=== PATIENT | female | born 1965 | race Caucasian/White ===

== ENCOUNTER → 2019-02-12 | Outpatient (CLI) | payer OTHER | END | disposition home or self-care (01) | LOC: CFH 15:37 | PROVIDERS: ATTEND Obstetrics & Gynecology | DX: D25.1 Intramural leiomyoma of uterus (principal) | CPT/HCPCS: 76856 ==

== ENCOUNTER 2019-06-28 11:05 | Inpatient (IN) | payer OTHER ==
[~2019-06-28] VITALS: Ht 177.8 cm; Wt 87.1 kg
[~2019-06-28 11:05] MED LIST: ASPI81TA45 PO; IRON PO; MAGNESIUM PO
[2019-06-28] MEDS ORDERED: PHENYLEPHRINE 10 MG/ML ONE (11:14)
[2019-06-28] MEDS ORDERED: SUGAMMADEX 200 MG/2 ML IVPush ONE (11:14)
[2019-06-28] MEDS ORDERED: ONDANSETRON 2MG/ML, 2ML ONE (11:14)
[2019-06-28] MEDS ORDERED: PROPOFOL 10 MG/ML, 20ML ONE (11:14)
[2019-06-28] MEDS ORDERED: ROCURONIUM 10MG/ML,5ML ONE (11:14)
[2019-06-28] MEDS ORDERED: GLYCOPYRROLATE 0.2MG/1ML, 5ML ONE (11:14)
[2019-06-28] MEDS ORDERED: CEFOTETAN 2 GM ONE (11:14)
[2019-06-28] MEDS ORDERED: DEXAMETHASONE 4 MG/ML, 1ML ONE (11:14)
[2019-06-28 11:50] VITALS: BP 102/66
[2019-06-28 12:00] LABS: HCG UR SG 1.018 (1.003-1.030)
[2019-06-28] MEDS ORDERED: ACETAMINOPHEN 500 MG TABLET PO ONE (12:00)
[2019-06-28] MEDS ORDERED: GABAPENTIN 300 MG CAPSULE PO ONE (12:00)
[2019-06-28] MEDS ORDERED: PHENAZOPYRIDINE 200 MG TABLET PO ONE (12:00)
[2019-06-28] MEDS ORDERED: LACTATED RINGERS 1,000 ML IV SCH (12:02)
[2019-06-28] MEDS ORDERED: EPINEPHRINE 1 MG/ML, 1ML ONE (12:11)
[2019-06-28] MEDS ORDERED: SODIUM CHLORIDE 0.9% 0 ML ONE (12:11)
[2019-06-28] MEDS ORDERED: BUPIVACAINE/PF 0.25% ONE (12:11)
[2019-06-28] MEDS ORDERED: FLUORESCEIN SODIUM 500 MG/5 ML ONE (12:11)
[2019-06-28] MEDS ORDERED: VASOPRESSIN 20 UNIT/ML, 1ML ONE (12:12)
[2019-06-28] MEDS ORDERED: SCOPOLAMINE PATCH, 1.5MG PATCH.TD72 TD ONE (12:30)
[2019-06-28] MEDS ORDERED: MEPERIDINE/PF 25MG/0.5ML IVPush PRN (14:30)
[2019-06-28] MEDS ORDERED: hydrALAzine 20 MG/ML, 1ML IV PRN (14:30)
[2019-06-28] MEDS ORDERED: HALOPERIDOL 5 MG/ML IV PRN (14:30)
[2019-06-28] MEDS ORDERED: PROMETHAZINE 25 MG/ML, 1ML IV PRN (14:30)
[2019-06-28] MEDS ORDERED: OXYcodone 5 MG/5 ML ORAL.SOL UDC PO PRN (14:30)
[2019-06-28] MEDS ORDERED: FENTANYL PF 100 MCG/2ML ONE ×2 (16:08→16:46)
[2019-06-28] MEDS ORDERED: OXYcodone 5 MG/5 ML ORAL.SOL UDC ONE (16:08)
[2019-06-28] MEDS ORDERED: HYDROmorphone 2 MG/ML, 1ML ONE (16:08)
[2019-06-28] MEDS: FENTANYL PF 100 MCG/2ML IV PRN ×3 (16:11→16:49)
[2019-06-28] MEDS: HYDROmorphone 2 MG/ML, 1ML IVPush PRN ×4 (16:14→16:44)
[2019-06-28] MEDS ORDERED: morphine SULFATE 10 MG/ML, 1ML IV PRN (18:00)
[2019-06-28] MEDS ORDERED: ACETAMINOPHEN 325 MG TABLET PO PRN (18:00)
[2019-06-28] MEDS ORDERED: ACETAMINOPHEN 650 MG SUPP PR PRN (18:00)
[2019-06-28 19:36] VITALS: BP 90/49
[2019-06-28] MEDS ORDERED: ZOLPIDEM 5MG TABLET PO PRN (21:00)
[2019-06-28] MEDS: IBUPROFEN 600 MG TABLET PO SCH (21:06)
[2019-06-28] MEDS: OXYcodone/APAP 5/325MG TABLET PO PRN (21:06)
[2019-06-28] MEDS: SIMETHICONE 80 MG CHEW TAB PO SCH (21:06)
[2019-06-28] MEDS: LACTATED RINGERS 1,000 ML IV SCH (22:00)
[2019-06-29 00:36] VITALS: BP 102/55
[2019-06-29 04:19] VITALS: BP 109/50
[2019-06-29] MEDS: OXYcodone/APAP 5/325MG TABLET PO PRN ×4 (05:23→20:52)
[2019-06-29] MEDS: IBUPROFEN 600 MG TABLET PO SCH ×4 (05:23→20:53)
[2019-06-29] MEDS: LACTATED RINGERS 1,000 ML IV SCH ×3 (06:04→22:00)
[2019-06-29 07:20] VITALS: BP 95/57
[2019-06-29] MEDS: SIMETHICONE 80 MG CHEW TAB PO SCH ×3 (08:20→20:53)
[2019-06-29] MEDS ORDERED: OXYC-302 PO (10:45)
[2019-06-29] MEDS ORDERED: IBUP-1222 PO (10:50)
[2019-06-29 15:14] VITALS: BP 102/64
[2019-06-29 19:14] VITALS: BP 107/64
[2019-06-30 00:13] VITALS: BP 107/66
[2019-06-30] MEDS: OXYcodone/APAP 5/325MG TABLET PO PRN ×2 (02:11→06:28)
[2019-06-30] MEDS: LACTATED RINGERS 1,000 ML IV SCH (06:00)
[2019-06-30] MEDS: IBUPROFEN 600 MG TABLET PO SCH (06:28)
[2019-06-30 07:30] VITALS: BP 105/62
[2019-06-30] MEDS: SIMETHICONE 80 MG CHEW TAB PO SCH (08:13)
== END 2019-06-30 11:30 | disposition home or self-care (01) | DRG 743 ==
LOC: OUT 11:05 → 4NOR 17:17 → OUT 22:17 → 4NOR 22:17
PROVIDERS: ADMIT Obstetrics & Gynecology; ATTEND Obstetrics & Gynecology
PROC: 0UT90ZZ Resection of Uterus, Open Approach (ICD-10-PCS; 2019-06-28)
PROC: 0UJD4ZZ Inspection of Uterus and Cervix, Percutaneous Endoscopic Approach (ICD-10-PCS; 2019-06-28)
PROC: 0UT70ZZ Resection of Bilateral Fallopian Tubes, Open Approach (ICD-10-PCS; principal; 2019-06-28 13:00)
DX: D25.1 Intramural leiomyoma of uterus (principal); G89.29 Other chronic pain; N73.6 Female pelvic peritoneal adhesions (postinfective); N92.0 Excessive and frequent menstruation with regular cycle; Z53.31 Laparoscopic surgical procedure converted to open procedure; Z88.1 Allergy status to other antibiotic agents
CPT/HCPCS: 36415; J3490; 81025; 85014; 85018; 88307; 88311; G0378; J0171; J1100; J1170; J2405; J2704; J3010; J2370; J7120

== ENCOUNTER 2020-01-29 09:28 | Emergency (ER) | payer OTHER ==
[~2020-01-29] VITALS: Ht 177.8 cm; Wt 32.0 kg
[~2020-01-29 09:28] MED LIST changes: +IBUP-1222 PO; +OXYC-302 PO
--- NOTE | 2020-01-29 10:00 | NUR ---
REPORT GIVEN TO PRIMARY RN JEROMY.
--- NOTE | 2020-01-29 10:07 | NUR ---
TASK RN NOTE: PT SENT FROM URGENT CARE. PT PRESENTS TO ED WITH C/O LEFT LATERAL RIB PAIN, DESCRIBED SHARP, STABBING AND BRIEF. PT STATES THAT FIRST EPISODE OCCURRED YESTERDAY AT 4PM, SECOND EPISODE AT 3AM (THIS AM). PT STATES SHE HAD BRIEF SOB AT 3AM, HOWEVER PT DENIES SOB OR PAIN AT THIS TIME. PT STATES SHE HAS HX OF AFIB, LAST KNOWN EPISODE WAS 06/2019. PT'S TRIAGE NOTE STATES COMPLAINT OF LEFT ARM PAIN, PT DENIES LEFT ARM PAIN. PT STATES SHE HAS NEVER TAKEN BLOOD THINNERS, "I PREFER TO EXERCISE AND TRY TO STAY HEALTHY THAT WAY." PT DENIES PAIN TO ANY EXTREMITY, DENIES ANY EDEMA. PT ATTACHED TO ALL MONITORS. PT A&OX4, RESPS EVEN AND UNLABORED, SPEAKING IN FULL SENTENCES. CALL LIGHT IN REACH, MED STUDENT AT BEDSIDE FOR INITIAL ASSESSMENT.
[2020-01-29 11:00] LABS: BASOPHILS # (AUTO) 0.05 x10^3/uL (0-0.1); BASOPHILS % (AUTO) 1 % (0-1); EOSINOPHILS # (AUTO) 0.05 x10^3/uL (0-0.4); EOSINOPHILS % (AUTO) 1 % (1-7); LYMPHOCYTES # (AUTO) 1.49 x10^3/uL (1-3.4); LYMPHOCYTES % (AUTO) 21 % (22-44); MD NO; MEAN CORPUSCULAR HEMOGLOBIN 30.6 pg (27.0-34.8); MEAN CORPUSCULAR HGB CONC 33.6 g/dL (32.4-35.8); MEAN PLATELET VOLUME 8.8 fL (7.4-10.4); MONOCYTES # (AUTO) 0.31 x10^3/uL (0.2-0.8); MONOCYTES % (AUTO) 4 % (2-9); NEUTROPHILS # (AUTO) 5.38 x10^3/uL (1.8-6.8); NEUTROPHILS % (AUTO) 74 % (42-75); PLATELET COUNT 217 x10^3/uL (130-400); RED BLOOD COUNT 4.83 x10^6/uL (3.82-5.3); RED CELL DISTRIBUTION WIDTH 13.2 % (9.6-15.2)
[2020-01-29 11:11] LABS: ALBUMIN 4.1 g/dL (3.4-5.0); ANION GAP 7 mmol/L (5-15); CALCIUM 9.4 mg/dL (8.5-10.1); CHLORIDE 108 mmol/L (98-107); CREATININE 0.96 mg/dL (0.55-1.02)
[2020-01-29 11:15] LABS: TROPONIN I < 0.015 ng/mL (0.000-0.045)
--- NOTE | 2020-01-29 12:15 | NUR ---
PIV PLACED -CT CALLED TO DETERMINE ESTIMATED TIME OF SCAN- ESTIMATED 20 MINUTES VSS ON FUEL HANDLER PATIENT [id number] CP/PALPITATIONS AT THIS TIME PATIENT UPDATED ON ESTIMATED POC
--- NOTE | 2020-01-29 12:59 | NUR ---
BACK FROM CT
[2020-01-29] MEDS ORDERED: OMNIPAQUE 350 MG/ML, 75ML BOTTLE ONE (13:01)
--- NOTE | 2020-01-29 13:51 | NUR ---
BREAK RN: SANDRA STUDENT FLORIDALMA AT BEDSIDE FOR RECHECK/EXPLANATION OF RESULTS. ALL QUESTIONS ANSWERED. PT VERBALIZES UNDERSTANDING OF RESULTS. PT AO X 4. SKIN PWD. RESP EVEN AND UNLABORED. CALL LIGHT WITHIN REACH.
[2020-01-29 14:08] VITALS: BP 122/71
== END 2020-01-29 14:10 | disposition home or self-care (01) ==
LOC: ED 11:23
DX: R07.89 Other chest pain (principal); I48.91 Unspecified atrial fibrillation; G43.909 Migraine, unspecified, not intractable, without status migrainosus
CPT/HCPCS: 36415; 71046; 71260; 80048; 82040; 84484; 85025; 85379; 93005; 99285; Q9967

== ENCOUNTER 2021-06-15 17:30 | Emergency (ER) | payer OTHER ==
[~2021-06-15] VITALS: Ht 177.8 cm; Wt 65.1 kg
[~2021-06-15 17:30] MED LIST changes: -OXYC-302 PO; +OXYC1TAB14 PO
[2021-06-15 18:48] LABS: BASOPHILS % (AUTO) 1 % (0-1); EOSINOPHILS % (AUTO) 0 % (1-7); LYMPHOCYTES % (AUTO) 28 % (22-44); MEAN CORPUSCULAR HEMOGLOBIN 30.8 pg (27.0-34.8); MEAN CORPUSCULAR HGB CONC 34.4 g/dL (32.4-35.8); MEAN PLATELET VOLUME 9.3 fL (7.4-10.4); MONOCYTES % (AUTO) 7 % (2-9); NEUTROPHILS % (AUTO) 64 % (42-75); PLATELET COUNT 176 x10^3/uL (130-400); RED BLOOD COUNT 4.92 x10^6/uL (3.82-5.3); RED CELL DISTRIBUTION WIDTH 13.4 % (9.6-15.2)
--- NOTE | 2021-06-15 18:48 | NUR ---
report recieved form krystina tolliver
[2021-06-15 18:49] LABS: ALANINE AMINOTRANSFERASE 25 U/L (12-78); ANION GAP 5 mmol/L (5-15); CALCIUM 9.4 mg/dL (8.5-10.1); CHLORIDE 107 mmol/L (98-107); CREATININE 0.84 mg/dL (0.55-1.02)
[2021-06-15 18:52] LABS: ALKALINE PHOSPHATASE 51 U/L (45-117); BILIRUBIN,TOTAL 0.9 mg/dL (0.2-1.0); TOTAL PROTEIN 6.9 g/dL (6.4-8.2)
[2021-06-15] MEDS ORDERED: SODIUM CHLORIDE FLUSH 10ML SYR IVF ONE (19:00)
--- NOTE | 2021-06-15 19:20 | NUR ---
PT TO CT
[2021-06-15] MEDS ORDERED: OMNIPAQUE 350 MG/ML, 100ML BOTTLE ONE (19:45)
--- NOTE | 2021-06-15 19:46 | NUR ---
pt back from ct, ambulated to restroom at this time.
[2021-06-15 19:52] VITALS: BP 142/81
== END 2021-06-15 20:45 | disposition home or self-care (01) ==
LOC: ED 20:00
DX: L04.0 Acute lymphadenitis of face, head and neck (principal); I48.91 Unspecified atrial fibrillation; R07.89 Other chest pain; Z88.0 Allergy status to penicillin
CPT/HCPCS: 36415; 70491; 71045; 80053; 85025; 99285; Q9967